=== PATIENT | female | born 2000 | race Caucasian/White ===

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

== ENCOUNTER 2022-04-22 15:41 | Outpatient (REF) | payer BC, SELFPAY ==
[2022-04-23 02:26] LABS: CT PCR NOT DETECTED (Not Detect.); NG PCR NOT DETECTED (Not Detect.)
== END 2022-04-22 15:42 | disposition home or self-care (01) ==
LOC: HO.LAB 15:41
PROVIDERS: Visit Provider Advanced Practice Midwife
DX: Z11.3 Encounter for screening for infections with a predominantly sexual mode of transmission (principal)
CPT/HCPCS: 87491; 87591

== ENCOUNTER 2023-04-24 14:29 | Outpatient (REF) | payer BC, SELFPAY ==
[2023-04-25 11:48] LABS: BV Int Neg Control Negative (Negative); BV Int Pos Control Positive (Positive)
== END 2023-04-24 14:30 | disposition home or self-care (01) ==
LOC: HO.LAB 14:29
PROVIDERS: PCP Pediatrics; Visit Provider Advanced Practice Midwife
DX: Z20.2 Contact with and (suspected) exposure to infections with a predominantly sexual mode of transmission (principal)
CPT/HCPCS: 87480; 87510; 87660

== ENCOUNTER 2023-04-24 14:29 | Outpatient (AMB) | payer BC, SELFPAY ==
[2023-04-24 14:37] VITALS: BP 110/62; BMI 23.7
--- NOTE | 2023-04-24 14:37 | A.OFFVIS_ITS ---
Intake Vital Signs 04/24/23 14:37 Height 5 ft 7.52 in Weight 154 lb BMI 23.7 BP 110/62 Intake Visit Reasons: CABLE FORMER annual exam Intake Note: The patient agreed to use of a ophthalmic medical technician during this encounter. Scribed for RUBY Marie by Debby Hernandez ophthalmic medical technician, on 04/24/2023 at 2:48 pm EST. Sharepoint Solutions Developer Required: No Information Interpreted: non-clinical & clinical Floating Labor Gang Supervisor: Floating Labor Gang Supervisor Present (Amarilis) Allergies No Known Allergies Allergy (Verified 04/24/23 14:39) Is last menstrual period known: Yes Post menopausal: No Patient : No HPI HPI Comments History of Present Illness Details She is a premenopausal woman presenting for annual exam. She admits to eating healthy and tries to stay active with exercise. Recently broke up with boyfriend.Currently not sexually active. Uses OCP's for BC and is doing well. Reports occasional VB during intimacy. Denies vaginal itching and irritation. STD screening and blood work requested. Denies family hx of breast and ovarian cancer. She denies any contraindications to control such as: migraines with aura, history of DVT or pulmonary emboli, high blood pressure, liver disease, thrombolic disorders, Lupus, +VERA, or smoking. Reviewed use, side effects and warnings including ACHES. PFSH Medical History No pertinent past medical history Surgical History Hx of wisdom tooth extraction No pertinent past surgical history Family History Mother Sleep apnea Anxiety and depression Obesity Father No problems noted. Family/Other Colon cancer Maternal Grandmother Anxiety and depression Maternal Uncle Anxiety and depression Substance use disorder Hyperlipidemia Other Asthma Heart disease Hypertension Social History Household Members: Family Housing: House Alcohol intake: current Alcohol intake frequency: holidays/special occasions only Patient Tobacco Use Status: Never used Tobacco Current occupation: [employer], works as a [employer] Sexual orientation: Straight/Heterosexual Gender identity: Female Cognitive needs: No Hearing needs: No Vision needs: No Female Reproductive History Menstrual Age of Menarche: 15 Duration of menses: 3-5 days control method: pills Total pregnancies: 0 Physical Exam Vital Signs: Last Vital Signs BP 110/62 04/24/23 14:37 BMI result Body Mass Index 23.7 Const General: cooperative, healthy appearing, no acute distress, well developed and alert Orientation/consciousness: patient oriented x3 HEENT Head: Yes normal to inspection Eyes General: appearance normal, both eyes and all related structures Neck Neck: Yes normal visual inspection Thyroid: Thyroid normal Chest Chest palpation & inspection: normal inspection of the chest Breast/axilla inspection: normal inspection of the breasts (no puckering, dimpling, peau de orange, retraction, discharge, masses) Breast/axilla palpation: normal palpation of the breasts Resp Effort & Inspection: normal respiratory effort GI Inspection: Yes normal to inspection Palpation (GI): Soft to palpation (to palpation) Rectal Exam - Female: deferred General: Yes bladder normal to inspection External Female Exam: normal external appearance and normal appearance of the urethra Speculum Exam - Vagina: normal appearance of the vagina, normal palpation and normal vaginal discharge Speculum Exam - Cervix: normal appearance of the cervix, normal palpation and Other cervical findings present (small amount of blood present) Bimanual exam- vagina & uterus: normal palpation and normal palpation Bimanual Exam- Adnexa, other: normal adnexae and no masses Skin General skin exam: no rashes or lesions noted Neuro General: patient oriented x3 Cognition (Neuro): normal cognition Extrem General: Yes normal to inspection Psych Attitude: cooperative Thought process: Normal thought process present Assessment & Plan Assessment & Plan (1) Encounter for well woman exam: Code(s): Z01.419 - Encounter for gynecological examination (general) (routine) without abnormal findings Plan: Discussed: Current recommendations for pap smears per ASCCP guidelines Breast awareness and periodic self breast exams. Maintaining a healthy lifestyle including a well balanced diet and routine exercise. Encouraged to use condoms for STD prevention. All of her questions and concerns were addressed to the best of my ability. RTO in one year for AG. (2) Potential exposure to STD: Code(s): Z20.2 - Contact with and (suspected) exposure to infections with a predominantly sexual mode of transmission Plan: BV testing and GC/CT panel today. STD blood work ordered. Await results and treat accordingly. (3) Contraceptive surveillance: Code(s): Z30.40 - Encounter for surveillance of contraceptives, unspecified Plan: Continue OCP's. Rx sent to pharmacy. She was instructed to go to ER if she develops loss of vision, severe headache that does not resolve, chest pain, difficulty breathing, abdominal pain, or pain or tenderness in extremity. Call the office with any concerns. Orders: Orders HIV Ab/Ag Today Z20.2 - Contact with and (suspected) exposure to infections with a predominantly sexual mode of transmission Hepatitis B Core Antibody Today Z20.2 - Contact with and (suspected) exposure to infections with a predominantly sexual mode of transmission Hepatitis C Antibody Today Z20.2 - Contact with and (suspected) exposure to infections with a predominantly sexual mode of transmission Syphilis Screen Today Z20.2 - Contact with and (suspected) exposure to infections with a predominantly sexual mode of transmission Bacterial Vaginosis Panel Today Z20.2 - Contact with and (suspected) exposure to infections with a predominantly sexual mode of transmission CT NG by PCR Today Z20.2 - Contact with and (suspected) exposure to infections with a predominantly sexual mode of transmission Medications: Refilled L norgest/e.estradiol-e.estrad 0.15 mg-30 mcg (84)/10 mcg (7) 1 tab PO DAILY 182 ea 3RF 3 months Coding Level of Care Code Est Pt Prev Care 18-39y(21081) Diagnoses Encounter for well woman exam Z01.419 Potential exposure to STD Z20.2 Contraceptive surveillance Z30.40
== END 2023-04-24 15:04 | disposition home or self-care (01) ==
LOC: HO.HWS 14:29
PROVIDERS: PCP Pediatrics; Visit Provider Advanced Practice Midwife
DX: Z01.419 Encounter for gynecological examination (general) (routine) without abnormal findings (principal); Z20.2 Contact with and (suspected) exposure to infections with a predominantly sexual mode of transmission
CPT/HCPCS: 99395

== ENCOUNTER 2023-04-24 15:01 | Outpatient (REF) | payer BC, SELFPAY | END 2023-04-24 15:02 | disposition home or self-care (01) | LOC: HO.LNP 15:01 | PROVIDERS: Visit Provider Advanced Practice Midwife | DX: Z13.89 Encounter for screening for other disorder (principal) ==

== ENCOUNTER 2023-04-24 15:10 | Outpatient (REF) | payer BC, SELFPAY ==
[2023-04-25 03:00] LABS: Syphilis Screen Nonreactive (Nonreactive)
[2023-04-25 03:13] LABS: HBc Num1 0.09 S/CO (0.00-0.79); HIV AB/AG Nonreactive (Nonreactive); HIV Num 1 0.08 S/CO (0.00-0.99); Hepatitis B Core Antibody Nonreactive (Nonreactive); ~HepC Num1 0.46 S/CO (0.00-0.79); ~Hepatitis C Antibody Nonreactive (Nonreactive)
[2023-04-25 05:08] LABS: CT PCR DETECTED (Not Detect.); NG PCR NOT DETECTED (Not Detect.)
== END 2023-04-24 15:11 | disposition home or self-care (01) ==
LOC: HO.LAB 15:10
PROVIDERS: Visit Provider Advanced Practice Midwife
DX: Z11.4 Encounter for screening for human immunodeficiency virus [HIV] (principal); Z20.2 Contact with and (suspected) exposure to infections with a predominantly sexual mode of transmission
CPT/HCPCS: 0353U; 86704; 86780; 86803; 87389

== ENCOUNTER 2023-07-29 11:16 | Outpatient (AMB) | payer BC, SELFPAY ==
--- NOTE | 2023-07-29 11:18 | A.OFFVIS_ITS ---
Intake Vital Signs 07/29/23 11:19 Height 5 ft 7.52 in Weight 162 lb BMI 25.0 BP 122/80 Intake Visit Reasons: 3 month micah follow up Intake Note: Scribed for Jie Mario CNM by Ravinder Doherty, medical imaging director, on 07/29/23 at 11:30 AM, EST Fur Finisher Tailor: Fur Finisher Tailor Present (Amarilis) Allergies No Known Allergies Allergy (Verified 07/29/23 11:19) HPI HPI Comments History of Present Illness Details Patient presents for a test of care follow-up for chlamydia. She says she completed all her prescribed Abx, and is doing well. She says her partner has also completed their medication She reports having a yeast infection sometime last week, and she wanted to have this checked today and make sure it has resolved. She has no other concerns today. [facility] Medical History No pertinent past medical history Surgical History Hx of wisdom tooth extraction No pertinent past surgical history Family History Mother Sleep apnea Anxiety and depression Obesity Father No problems noted. Family/Other Colon cancer Maternal Grandmother Anxiety and depression Maternal Uncle Anxiety and depression Substance use disorder Hyperlipidemia Other Asthma Heart disease Hypertension Social History Household Members: Family Housing: House Alcohol intake: current Alcohol intake frequency: holidays/special occasions only Patient Tobacco Use Status: Never used Tobacco Current occupation: [employer], works as a [employer] Sexual orientation: Straight/Heterosexual Gender identity: Female Cognitive needs: No Hearing needs: No Vision needs: No Female Reproductive History Menstrual Age of Menarche: 15 control method: pills Review of Systems Const All systems reviewed & are unremarkable except as noted in HPI and below Physical Exam Vital Signs: Last Vital Signs BP 122/80 07/29/23 11:19 BMI result Body Mass Index 25.0 Const General: cooperative, healthy appearing and no acute distress Orientation/consciousness: patient oriented x3 GI Inspection: Yes normal to inspection Palpation (GI): Soft to palpation and Other GI palpation findings present (Nontender) Rectal Exam - Female: visual inspection normal General: Yes bladder normal to palpation External Female Exam: normal appearance of the urethra Speculum Exam - Vagina: normal appearance of the vagina, normal palpation and normal vaginal discharge (Small amount of white discharge) Speculum Exam - Cervix: normal appearance of the cervix and normal palpation Bimanual exam- vagina & uterus: normal bimanual exam, normal palpation, uterine size normal, bladder normal to palpation, normal palpation, uterine shape normal and non-tender Bimanual Exam- Adnexa, other: normal adnexae Neuro General: patient oriented x3 Assessment & Plan Assessment & Plan (1) Chlamydia contact, treated: Code(s): Z20.2 - Contact with and (suspected) exposure to infections with a predominantly sexual mode of transmission Plan: She has completed all her medication as instructed. She has no complaints. Cultures taken for testing. All of her questions and concerns were addressed to the best of my ability and shared decision making. She is agreeable to plan of care. She will follow up for her scheduled annual. (2) Vaginitis: Code(s): N76.0 - Acute vaginitis Plan: Recently treated for yeast infection. No complaints today Orders: Orders Bacterial Vaginosis Panel Today N76.0 - Acute vaginitis CT NG by PCR Today N76.0 - Acute vaginitis, Z20.2 - Contact with and (suspected) exposure to infections with a predominantly sexual mode of transmission Coding Level of Care Code Est Pt Level 3 (02899) Diagnoses Chlamydia contact, treated Z20.2 Vaginitis N76.0
[2023-07-29 11:19] VITALS: BP 122/80; BMI 25.0
== END 2023-07-29 11:46 | disposition home or self-care (01) ==
LOC: HO.HWS 11:16
PROVIDERS: PCP Pediatrics; Visit Provider Advanced Practice Midwife
DX: Z20.2 Contact with and (suspected) exposure to infections with a predominantly sexual mode of transmission (principal); N76.0 Acute vaginitis
CPT/HCPCS: 99213

== ENCOUNTER 2023-07-29 11:16 | Outpatient (REF) | payer BC, SELFPAY ==
[2023-07-30 11:05] LABS: CT PCR NOT DETECTED (Not Detect.); NG PCR NOT DETECTED (Not Detect.)
[2023-07-30 12:02] LABS: BV Int Neg Control Negative (Negative); BV Int Pos Control Positive (Positive)
== END 2023-07-29 11:17 | disposition home or self-care (01) ==
LOC: HO.LAB 11:16
PROVIDERS: PCP Pediatrics; Visit Provider Advanced Practice Midwife
DX: N76.0 Acute vaginitis (principal); Z20.2 Contact with and (suspected) exposure to infections with a predominantly sexual mode of transmission
CPT/HCPCS: 0353U; 87480; 87510; 87660

== ENCOUNTER 2023-07-29 11:33 | Outpatient (REF) | payer BC, SELFPAY | END 2023-07-29 11:34 | disposition home or self-care (01) | LOC: HO.LNP 11:33 | PROVIDERS: Visit Provider Advanced Practice Midwife | DX: Z13.89 Encounter for screening for other disorder (principal) ==

== ENCOUNTER 2024-06-11 07:50 | Outpatient (AMB) | payer BC, SELFPAY ==
--- NOTE | 2024-06-11 07:52 | MHC.OFFVIS ---
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 Doing well with no concerns. She tries to eat healthy and stays active with exercise. Regular monthly menses. Currently is sexually active. Admits to PCB [id number], treated for yeast for external irritations, symptoms not results. Currently taking an oral probiotic. STI screening offered; she accepts, declines blood work. Family history of colon cancer. Doing well on control. She denies any contraindications to control such as: migraines with aura, history of DVT or pulmonary emboli, high blood pressure, liver disease, thrombolic disorders, Lupus, +VERA, breast cancer, or smoking. [facility] Medical History (Updated 06/11/24 @ 08:18 by Jie Mario CNM) No pertinent past medical history Surgical History Hx of wisdom tooth extraction No pertinent past surgical history Family History Mother Sleep apnea Anxiety and depression Obesity Father No problems noted. Family/Other Colon cancer Maternal Grandmother Anxiety and depression Maternal Uncle Anxiety and depression Substance use disorder Hyperlipidemia Other Asthma Heart disease Hypertension Social History Household Members: Family Both parents involved: Yes Housing: House Alcohol intake: current Alcohol intake frequency: holidays/special occasions only Patient Tobacco Use Status: Never used Tobacco Current occupation: [employer], works as a [employer] Sexual orientation: Straight/Heterosexual Gender identity: Female Cognitive needs: No Hearing needs: No Vision needs: No Female Reproductive History Menstrual Age of Menarche: 15 Duration of menses: 6-7 days Date of last menstrual period: 05/04/24 control method: pills Total pregnancies: 0 History of STI: Yes (05/07 +chl) Review of Systems Const All systems reviewed & are unremarkable except as noted in HPI and below Reports as per HPI Eyes Reports no additional complaints ENT Reports no additional complaints Card Reports no additional complaints Resp Reports no additional complaints GI Reports as per HPI and Reports no additional complaints Reports as per HPI Musc Reports no additional complaints Skin/Breast Reports as per HPI Neuro Reports no additional complaints Psych Reports no additional complaints Endo Reports no additional complaints Deonte/Lymph Reports no additional complaints Aller/Immun Reports no additional complaints Physical Exam Vital Signs: BMI result Body Mass Index 26.7 Const General: cooperative, healthy appearing, no acute distress, well developed and alert Orientation/consciousness: patient oriented x3 HEENT Head: Yes normal to inspection Eyes General: appearance normal, both eyes and all related structures Neck Neck: Yes normal visual inspection Thyroid: Thyroid normal Chest Chest palpation & inspection: normal inspection of the chest and other (no puckering, dimpling, peau de orange, retraction, discharge, masses) Breast/axilla inspection: normal inspection of the breasts Breast/axilla palpation: normal palpation of the breasts Resp Effort & Inspection: normal respiratory effort GI Inspection: Yes normal to inspection Palpation (GI): Soft to palpation Rectal Exam - Female: deferred General: Yes bladder normal to palpation External Female Exam: normal external appearance and normal appearance of the urethra Speculum Exam - Vagina: normal appearance of the vagina, normal palpation and normal vaginal discharge (White, thick) Speculum Exam - Cervix: normal appearance of the cervix and normal palpation Bimanual exam- vagina & uterus: normal bimanual exam, normal palpation, uterine size normal, bladder normal to palpation, normal palpation, non-tender and other (Ectopy noted) Bimanual Exam- Adnexa, other: no masses Skin General skin exam: no rashes or lesions noted Rashes: no rashes Neuro General: patient oriented x3 Cognition (Neuro): normal cognition Extrem General: Yes normal to inspection Psych Attitude: cooperative Thought process: Normal thought process present Assessment & Plan Assessment & Plan (1) Encounter for well woman exam with routine gynecological exam: Code(s): Z01.419 - Encounter for gynecological examination (general) (routine) without abnormal findings Category: Medical (2) Postcoital bleeding: Code(s): N93.0 - Postcoital and contact bleeding Category: Medical (3) Vaginal irritation: Code(s): N89.8 - Other specified noninflammatory disorders of vagina Plan Discussed: Current recommendations for pap smears per ASCCP guidelines. Pap smear obtained. Breast awareness and periodic breast exams. BV GC and chlamydia obtained. Await results for plan of care. Reviewed use of soaps, and boric acid protocol reviewed will discuss again in future if indicated a need to initiate. Call if symptoms do not resolve or worsens Maintain a healthy lifestyle including a well balanced diet and routine exercise. control hormone use warnings: go to ER if and loss of vision, blindness, severe headache, chest pain or difficulty breathing, severe abdominal pain, or any pain or swelling in an extremity. Patient verbalizes understanding and agrees to the plan of care. She was given opportunity to ask questions and all questions were answered to the best of my ability. RTO in one year for annual order schedule clerk examination. This note is constructed using voice recognition software. While every effort has been made to ensure accuracy, bulldozer press operator errors may have been included. Orders: Orders Bacterial Vaginosis Panel Today N89.8 - Other specified noninflammatory disorders of vagina CT NG by PCR Today N89.8 - Other specified noninflammatory disorders of vagina PAP rfx HPV E6/E7 and 16 18/45 Today Z01.419 - Encounter for gynecological examination (general) (routine) without abnormal findings Medications: Refilled L norgest/e.estradiol-e.estrad 0.15 mg-30 mcg (84)/10 mcg (7) 1 tab PO DAILY 3 months 182 ea 4RF Coding Level of Care Code Est Pt Prev Care 18-39y(87716) Diagnoses Encounter for well woman exam with routine gynecological exam Z01.419 Postcoital bleeding N93.0 Vaginal irritation N89.8
[2024-06-11 07:55] VITALS: BP 118/84; BMI 26.7
== END 2024-06-11 08:18 | disposition home or self-care (01) ==
PROVIDERS: PCP Pediatrics; Visit Provider Advanced Practice Midwife
DX: Z01.419 Encounter for gynecological examination (general) (routine) without abnormal findings (principal); N93.0 Postcoital and contact bleeding; N89.8 Other specified noninflammatory disorders of vagina
CPT/HCPCS: 99395

== ENCOUNTER 2024-06-11 07:50 | Outpatient (REF) | payer BC, SELFPAY ==
[2024-06-11 14:11] LABS: Bacterial Vaginosis PCR NEGATIVE (Negative); Candida Group PCR NOT DETECTED (Not Detect); Candida glab krusei PCR NOT DETECTED (Not Detect); Trichomonas vaginalis PCR NOT DETECTED (Not Detect)
[2024-06-11 14:39] LABS: CT PCR NOT DETECTED (Not Detect.); NG PCR NOT DETECTED (Not Detect.)
== END 2024-06-11 07:51 | disposition home or self-care (01) ==
LOC: HO.LAB 07:50
PROVIDERS: PCP Pediatrics; Visit Provider Advanced Practice Midwife
DX: N89.8 Other specified noninflammatory disorders of vagina (principal)
CPT/HCPCS: 0352U; 87491; 87591

== ENCOUNTER 2024-06-11 08:13 | Outpatient (REF) | payer BC, SELFPAY | END 2024-06-11 08:14 | disposition home or self-care (01) | LOC: HO.LNP 08:13 | PROVIDERS: Visit Provider Advanced Practice Midwife | DX: Z01.419 Encounter for gynecological examination (general) (routine) without abnormal findings (principal) | CPT/HCPCS: 87625; 88175 ==